=== PATIENT | female | born 1945 | race Caucasian/White ===

== ENCOUNTER 2016-06-11 03:36 | Emergency (ER) | payer OTHER, MEDICARE ==
--- NOTE | 2016-06-11 03:39 | PDOC ---
History of Present Illness - General Chief Complaint: Nausea/Vomiting Stated Complaint: N/V/D WITH FALL Time Seen by Provider: 06/11/16 03:38 History Source: Patient Exam Limitations: No Limitations - History of Present Illness Initial Comments: 06/11/16 03:45 This is a 62-year-old female who comes in complaining of syncope event. Patient said she woke up and was feeling very nauseous got up to go to the bathroom and on the way to the bathroom and had a syncopal event. Patient has history of similar events in the past and was diagnosed as vasovagal syncope. Patient said she knew that she was going to pass out and felt herself passing out. Patient said post syncope she she had diarrhea and multiple episodes of vomiting. Patient while vomiting and diarrhea also had another syncopal event. Patient said that she hit her head when she passed out. Patient denies any other injury. Patient denies any neck pain, chest pain, shortness of breath, abdominal pain or injuries of her extremities. Patient denies any headache at this time. PAST MEDICAL HISTORY: no significant history PAST SURGICAL HISTORY: no significant history FAMILY HISTORY: no pertinant history SOCIAL HISTORY: Pt lives with family and is employed. MEDICATIONS: reviewed ALLERGIES: As per nursing notes Review of Systems General: No fevers or chills, no weakness, no weight loss HEENT: No change in vision. No sore throat,. No ear pain CardioVascular: No chest pain or shortness of breath Respiratory:No cough, or wheezing. Gastrointestinal: Nausea vomiting diarrhea as per history of present illness Genitourinary: No dysuria, hematuria, or frequency Musculoskeletal: No joint or muscle pain or swelling Neurologic: Syncope as per history of present illness Psychiatric: nor depression Skin: No rashes or easy bruising Endocrine: no increased thirst or abnormal weight change Allergic: no skin or latex allergy All other systems reviewed and normal Exam: General: Well-nourished well-developed individual, no acute distress HEENT: Throat: Normal, tonsils normal, no erythema or exudate Neck: Supple, no meningeal signs, no lymphadenopathy Eyes::Pupils equal reactive and round, extraocular motion intact Chest: Nontender to palpation Cardiac: S1-S2 normal, regular rate and rhythm, no murmurs rubs or gallops Respiratory: Lungs clear to auscultation bilateral Abdomen: Soft, nondistended, normal bowel sounds, nontender to palpation diffusely Extremities: Warm, dry, no cyanosis, clubbing, or edema Skin: No rashes Neuro: Alert and oriented x3, nonfocal exam, grossly intact, normal gait Psych: Normal mood and affect 06/11/16 04:39 Referring Physician: Francine Zaman Patient Name: Trudy Desai THIS IS A PRELIMINARY REPORT FROM [facility] EXAM: CT head without contrast IMAGES: 77 EXAM DATE AND TIME: 2016-06-11 03:57:09.0 REASON FOR EXAM: 70 year-old female syncope, fall, right posterior head injury. COMPARISON: None. FINDINGS: Mild right parietal occipital scalp soft tissue swelling and a small subcutaneous hematoma. No acute intracranial hemorrhage mass effect or midline shift. The ventricles sulci and basilar cisterns have a normal size and contour. Mild nonspecific periventricular predominant low density throughout the deep white matter is most likely due to mild small vessel ischemic white matter disease. Calcified arteriosclerosis of the cavernous carotids noted. The sinuses and mastoid air cells are clear within the [id number]. The calvarium is intact. IMPRESSION No acute intracranial hemorrhage mass effect or midline shift. Mild right parietal occipital scalp soft tissue swelling and a small subcutaneous hematoma. Mild nonspecific periventricular predominant low density throughout the deep white matter is most likely due to mild small vessel ischemic white matter disease. Calcified arteriosclerosis of the cavernous carotids noted. THIS DOCUMENT HAS BEEN ELECTRONICALLY SIGNED Luca Loving MD 06/11/2016 04:24 YING Caballero Please call [facility] [phone] ([phone]) with questions 06/11/16 04:53 EKG shows normal sinus rhythm at a rate of 69, normal intervals no acute ST-T wave changes and occasional PAC otherwise normal EKG 06/11/16 06:39 Assessment and plan: This is a 70-year-old female who has history of vasovagal syncope in the past who developed nausea vomiting diarrhea this morning and had 2 episodes what appeared to be vasovagal syncope. Patient feels much better post IV fluids. Patient had a head CT that was negative for any acute pathology. Patient has an elevated white count of 17,000 but no left shift. Patient white count was repeat repeated after the fluids and is improved. Patient discharged home will follow-up with her primary care doctor. Past History - Past Medical History Allergies/Adverse Reactions: Allergies Allergy/AdvReac Type Severity Reaction Status Date / Time propoxyphene HCl Allergy Verified 06/11/16 03:41 [From [facility]] Home Medications: Ambulatory Orders Atorvastatin Ca [Lipitor] 20 mg PO HS 09/10/11 Hypercholesterolemia: Yes - Psycho/Social/Smoking Cessation Hx Anxiety: No Suicidal Ideation: No Smoking Status: No Smoking History: Never smoked Number of Cigarettes Smoked Daily: 0 ED Treatment Course - LABORATORY CBC & Chemistry Diagram: 06/11/16 03:30 06/11/16 03:30 *DC/Admit/Observation/Transfer Diagnosis at time of Disposition: Nausea, vomiting, and diarrhea, Vasovagal syncope - Discharge Dispostion Disposition: HOME Condition at time of disposition: Stable Admit: No - Patient Instructions Additional Instructions: Take Tylenol or Motrin as needed for pain. Follow-up with your primary care doctor. When you see a primary care doctor take a copy of your CAT scan. Return to the emergency department immediately with ANY new, persistent or worsening symptoms. Continue any medications as previously prescribed by your physician. You should follow up with your primary doctor as soon as possible regarding today's emergency department visit. . Please make sure your doctor reviews the results of your emergency evaluation. Thank you for coming to the Emergency Department today for your care. It was a pleasure to see you today. Please note that your evaluation is INCOMPLETE until you follow-up with your doctor.
[2016-06-11 04:11] VITALS: BMI 24.1
[2016-06-11 04:33] LABS: BASOPHIL 0.3 % (0-2.0); EOSINOPHIL 0.8 % (0-4.5); MCH 30.3 pg (25.7-33.7); MCHC 33.2 g/dl (32.0-36.0); MEAN CELL VOLUME 91.4 fl (80-96); MEAN PLT VOLUME 8.9 fl (7.5-11.1); NEUTROPHILS 80.4 % (42.8-82.8); PLATELET COUNT 298 K/MM3 (134-434); WHITE BLOOD COUNT 17.1 K/mm3 (4.0-10.0)
[2016-06-11] MEDS ORDERED: ONDANSETRON 4 MG/2 ML VIAL IVPB ONE (04:35)
[2016-06-11] MEDS ORDERED: SODIUM CHLORIDE 1,000 ML IV ONE ×2 (04:35)
[2016-06-11] MEDS ORDERED: ONDANSETRON 4 MG/2 ML VIAL ONE (04:37)
[2016-06-11 05:14] LABS: ALBUMIN 4.4 g/dl (3.4-5.0); ANION GAP 14 (8-16); BILIRUBIN,TOTAL 0.5 mg/dL (0.2-1.0); CALCIUM 9.4 mg/dL (8.5-10.1); CO2 27 mmol/L (21-32); CREATININE 0.8 mg/dL (0.55-1.02); GLUCOSE,RANDOM 114 mg/dL (74-106); SGOT/AST 23 U/L (15-37); SGPT/ALT 29 U/L (12-78); TOT PROT 8.1 g/dl (6.4-8.2)
[2016-06-11 05:16] LABS: ALK PHOS 113 U/L (45-117); TROPONIN I < 0.02 ng/ml (0.00-0.05)
[2016-06-11 06:15] VITALS: BP 133/71; PULSE 85; TEMP 98.7
[2016-06-11] MEDS ORDERED: ACETAMINOPHEN 325 MG TABLET (FP) PO ONE (07:15)
--- NOTE | 2016-06-11 07:16 | PDOC ---
*Physical Exam - Vital Signs Last Vital Signs Temp Pulse Resp BP Pulse Ox 98.7 F 85 16 133/71 99 06/11/16 06:13 06/11/16 06:13 06/11/16 06:13 06/11/16 06:13 06/11/16 06:13 - Physical Exam Comments: 06/11/16 07:15 Sign-out received from outgoing Emergency Physician Pt interviewed and examined She states that she feels "much better" and would like to go home She denies headache, neck stiffness, sore throat She denies cough, dyspnea She denies abdominal pain Her abdomen is soft and nontender Ancillary studies reviewed The plan of the outgoing emergency physician was to discharge the patient home if the second CBC showed an improved white blood cell count 06/11/16 07:52 The patient continues to be very well-appearing She has no complaints, and would like to go home Repeat CBC noted, with decreased white blood cell count 06/11/16 07:52 ED Treatment Course - LABORATORY CBC & Chemistry Diagram: 06/11/16 06:38 06/11/16 03:30 - ADDITIONAL ORDERS Additional order review: Laboratory Results 06/11/16 03:30 Sodium 142 Potassium 3.9 Chloride 101 Carbon Dioxide 27 Anion Gap 14 BUN 17 Creatinine 0.8 Creat Clearance w eGFR > 60 Random Glucose 114 H Calcium 9.4 Total Bilirubin 0.5 AST 23 ALT 29 Alkaline Phosphatase 113 Creatine Kinase 112 Troponin I < 0.02 Total Protein 8.1 Albumin 4.4 06/11/16 03:30 RBC 5.21 H MCV 91.4 MCHC 33.2 RDW 13.0 MPV 8.9 Neutrophils % 80.4 Lymphocytes % 13.1 Monocytes % 5.4 Eosinophils % 0.8 Basophils % 0.3 - Medications Given in the ED: ED Medications Discontinued Medications Generic Name Dose Route Start Last Admin Trade Name Freq PRN Reason Stop Dose Admin Sodium Chloride 1,000 mls @ 1,000 mls/hr 06/11/16 04:35 06/11/16 05:27 Normal Saline - IV 06/11/16 05:34 1,000 mls/hr .Q1H ONE Administration Sodium Chloride 1,000 mls @ 1,000 mls/hr 06/11/16 04:35 06/11/16 04:00 Normal Saline - IV 06/11/16 05:34 1,000 mls/hr .Q1H ONE Administration Ondansetron HCl 8 mg 06/11/16 04:35 06/11/16 04:40 Zofran Injection IVPB 06/11/16 04:36 8 mg ONCE ONE Administration *DC/Admit/Observation/Transfer Diagnosis at time of Disposition: Nausea vomiting and diarrhea, Vasovagal syncope - Discharge Dispostion Disposition: HOME Condition at time of disposition: Stable - Patient Instructions Printed Discharge Instructions: DI for Nausea -- Adult, DI for Vomiting -- Adult, DI for Syncope in Adults (Fainting) Additional Instructions: Take Tylenol or Motrin as needed for pain. Follow-up with your primary care doctor. When you see a primary care doctor take a copy of your CAT scan. Return to the emergency department immediately with ANY new, persistent or worsening symptoms. Continue any medications as previously prescribed by your physician. You should follow up with your primary doctor as soon as possible regarding today's emergency department visit. . Please make sure your doctor reviews the results of your emergency evaluation. Thank you for coming to the Emergency Department today for your care. It was a pleasure to see you today. Please note that your evaluation is INCOMPLETE until you follow-up with your doctor.
[2016-06-11] MEDS ORDERED: ACETAMINOPHEN 325 MG TABLET (FP) ONE (07:17)
[2016-06-11 07:37] LABS: WHITE BLOOD COUNT 14.1 K/mm3 (4.0-10.0)
[2016-06-11 07:38] LABS: MCH 30.9 pg (25.7-33.7); MCHC 33.9 g/dl (32.0-36.0); MEAN CELL VOLUME 91.2 fl (80-96); MEAN PLT VOLUME 8.7 fl (7.5-11.1); PLATELET COUNT 253 K/MM3 (134-434); RDW 13.1 % (11.6-15.6)
[2016-06-11 07:52] LABS: URINE APPEARANCE CLEAR; URINE BILIRUBIN NEGATIVE (NEGATIVE); URINE BLOOD NEGATIVE (NEGATIVE); URINE COLOR YELLOW; URINE GLUCOSE (UA) NEGATIVE (NEGATIVE); URINE KETONE NEGATIVE (NEGATIVE); URINE LEUK ESTERASE NEGATIVE (NEGATIVE); URINE NITRITE NEGATIVE (NEGATIVE); URINE PROTEIN NEGATIVE (NEGATIVE); URINE UROBILINOGEN NEGATIVE E.U./dl (0.2-1.0)
--- NOTE | 2016-06-11 09:50 | EKG ---
Test Reason : Blood Pressure : / mmHG Vent. Rate : 069 BPM Atrial Rate : 069 BPM P-R Int : 176 ms QRS Dur : 082 ms QT Int : 426 ms P-R-T Axes : 028 065 024 degrees QTc Int : 456 ms SINUS RHYTHM WITH PREMATURE ATRIAL COMPLEXES NO PREVIOUS ECGS AVAILABLE Confirmed by AMAURY GALLEGOS MD ([id number]) on 06/11/2016 9:50:22 AM Referred By: MD VICK Confirmed By:AMAURY GALLEGOS MD
== END 2016-06-11 08:44 | disposition home or self-care (01) ==
LOC: FER 03:36
PROC: 3E033GC Introduction of Other Therapeutic Substance into Peripheral Vein, Percutaneous Approach (ICD-10-PCS; principal; 2016-06-11)
PROC: 3E0337Z Introduction of Electrolytic and Water Balance Substance into Peripheral Vein, Percutaneous Approach (ICD-10-PCS; 2016-06-11)
DX: R55 Syncope and collapse (principal); R11.2 Nausea with vomiting, unspecified; R19.7 Diarrhea, unspecified
CPT/HCPCS: 36415; 70450-TC; 80053; 81003; 82550; 84484; 85025; 85027; 87086; 93005; 99284-25